=== PATIENT | female | born 1950 | race Caucasian/White ===

== ENCOUNTER 2021-06-14 07:33 | Outpatient (CLI) | payer OTHER | END 2021-06-14 07:34 | disposition home or self-care (01) | LOC: NM 07:33 | PROVIDERS: ATTEND Physician Assistant Medical | DX: R10.13 Epigastric pain (principal) | CPT/HCPCS: 78227; A9537 ==

== ENCOUNTER 2021-12-21 09:39 | Outpatient (CLI) | payer MEDICARE | END 2021-12-21 09:40 | disposition home or self-care (01) | LOC: BICMRI 09:39 | PROVIDERS: ATTEND Plastic Surgery | DX: T85.49XA Other mechanical complication of breast prosthesis and implant, initial encounter (principal); T85.44XA Capsular contracture of breast implant, initial encounter; Z98.82 Breast implant status | CPT/HCPCS: 77047 ==